=== PATIENT | male | born 1985 | race Two or more races ===

== ENCOUNTER 2020-08-01 23:07 | Emergency (ER) | payer MEDICAID ==
[~2020-08-01] VITALS: Ht 177.8 cm; Wt 62.1 kg
--- NOTE | 2020-08-01 23:22 | NUR ---
ED Nurse Note: Patient walked into ED c/o generalized weakness, report of being type 1 diabetic who has no access to glucometer, reports of being thirsty and weak,. ambulatory, a/ox4, 125hr, other vss, bs 168. pt stated he used meth today.
[2020-08-01] MEDS ORDERED: METOPROLOL SUCC50 MG ORAL (23:23)
[2020-08-01] MEDS ORDERED: NEURONTIN100 MG ORAL (23:23)
[2020-08-01] MEDS ORDERED: BUPROPION XL300 MG ORAL (23:23)
[2020-08-01] MEDS ORDERED: DEPAKOTE250 MG PO (23:23)
[2020-08-01 23:29] VITALS: BP 130/76
--- NOTE | 2020-08-01 23:34 | Emergency Room Report ---
History of Present Illness General Chief Complaint: Generalized Weakness Source: Patient Present Illness HPI Patient is a 35-year-old male past medical history of tachycardia says he is on metoprolol but has not taken it, drug use says he took crystal meth this morning and diabetes on NovoLog as well as Lantus but states he lost it and has not used his insulin for the past day. Who presents to the ER complaining of elevated blood glucose. Patient states that he feels generally weak. He states he has increased thirst and frequent urination. He denies any fever or chills. He denies any chest pain or shortness of breath. He denies any abdominal pain or diarrhea. He states that he has been admitted in the past for DKA. Allergies: Coded Allergies: CEFACLOR (Verified Allergy, Unknown, 08/01/20) TRAZODONE (Verified Allergy, Unknown, 08/01/20) COVID-19 Screening Contact w/high risk pt: No Experienced COVID-19 symptoms?: No COVID-19 Testing performed [employer]: Yes - 07/14/20 COVID-19 Screening: Negative COVID-19 COVID-19 Testing Source: [facility] Patient History Social History: Reports: drug use Reviewed Nursing Documentation: PMH: Agreed; PSxH: Agreed Nursing Documentation-PMH Past Medical History: No History, Except For Hx Diabetes: Yes - type 1 Review of Systems All Other Systems: negative except mentioned in HPI Physical Exam Vital Signs Date Time Temp Pulse Resp B/P (MAP) Pulse Ox O2 Delivery O2 Flow Rate FiO2 08/01/20 23:18 98.6 125 18 130/76 (94) 98 Room Air Sp02 EP Interpretation: reviewed, normal General Appearance: no apparent distress, alert, GCS 15, non-toxic Head: normocephalic, atraumatic Eyes: bilateral eye normal inspection, bilateral eye PERRL ENT: hearing grossly normal, normal pharynx, no angioedema, normal voice Neck: full range of motion, supple/symm/no masses Respiratory: chest non-tender, lungs clear, normal breath sounds, speaking full sentences Cardiovascular #1: tachycardia Gastrointestinal: non tender, soft, no guarding, no rebound Rectal: deferred Musculoskeletal: normal range of motion Neurologic: assistant broker III-XII nml as tested, oriented x3 Psychiatric: no suicidal/homicidal ideation Skin: no rash Lymphatic: no adenopathy Medical Decision Making Diagnostic Impression: Primary Impression: Methamphetamine abuse Additional Impressions: Hyperglycemia due to type 1 diabetes mellitus Episode of generalized weakness ER Course Patient presents complaining of weakness and feeling like he is hyperglycemic after losing his insulin for the past 24 hours. Patient admits to using methamphetamines this morning which is likely attributing to his tachycardia. Patient also states that he takes metoprolol for chronic tachycardia and has been taking it. He denies any chest pain or shortness of breath. Patient is afebrile and has normal white blood cell count. His lactate is mildly elevated 2.5 on known significance. Patient's chest x-ray demonstrates no acute cardiopulmonary pathology. Patient's urinalysis demonstrates no evidence for UTI. Patient's anion gap is normal. Patient's heart rate improved to 108 prior to arrival. Again I believe that his tachycardia is secondary to his methamphetamine use. After discussing risks and benefits of further diagnostics, treatment plans, as well as indications for and risks of admission, the patient is agreeable to being discharged home. I have explained that their evaluation and treatment in the emergency department today is an important step towards them achieving better health but that their evaluation today is not intended to replace further evaluation and treatment by a physician in their local clinic. I have explained that while the current findings suggest no immediate life threatening emergency they will require further evaluation and treatment by a physician of their choice in their area. They understand that it will be necessary for them to review the final reports of their ED visit with their clinic physician. We have reviewed indications for return to the Emerg ency Department. I have explained that additional time may need to pass and/or additional testing as an outpatient may be necessary before a definitive diagnosis can be made. They tell me they are willing to follow up as instructed within the timeframe I recommend. They appear to understand what we discussed. Additionally they understand that if they are unable to be seen by an outpatient physician they are welcome, and in fact should, return to the Emergency Department for a repeat evaluation. The patient is stable at time of discharge. Laboratory Tests Test 08/01/20 23:27 08/01/20 23:31 08/01/20 23:32 08/02/20 00:37 POC Whole Blood Glucose 168 MG/DL (74-106) H White Blood Count 9.2 K/UL (4.8-10.8) Red Blood Count 3.97 M/UL (4.70-6.10) L Hemoglobin 11.6 G/DL (14.2-18.0) L Hematocrit 34.5 % (42.0-52.0) L Mean Corpuscular Volume 87 FL (80-99) Mean Corpuscular Hemoglobin 29.3 PG (27.0-31.0) Mean Corpuscular Hemoglobin Concent 33.6 G/DL (32.0-36.0) Red Cell Distribution Width 15.5 % (11.6-14.8) H Platelet Count 322 K/UL (150-450) Mean Platelet Volume 7.4 FL (6.5-10.1) Neutrophils (%) (Auto) 83.1 % (45.0-75.0) H Lymphocytes (%) (Auto) 6.6 % (20.0-45.0) L Monocytes (%) (Auto) 9.5 % (1.0-10.0) Eosinophils (%) (Auto) 0.3 % (0.0-3.0) Basophils (%) (Auto) 0.4 % (0.0-2.0) Urine Color Yellow Urine Appearance Clear Urine pH 5 (4.5-8.0) Urine Specific [employer] 1.025 (1.005-1.035) Urine Protein 3+ (NEGATIVE) H Urine Glucose (UA) Negative (NEGATIVE) Urine Ketones Negative (NEGATIVE) Urine Blood 2+ (NEGATIVE) H Urine Nitrite Negative (NEGATIVE) Urine Bilirubin Negative (NEGATIVE) Urine Urobilinogen Normal MG/DL (0.0-1.0) Urine Leukocyte Esterase Negative (NEGATIVE) Urine RBC 2-4 /HPF (0 - 0) H Urine WBC 0 /HPF (0 - 0) Urine Squamous Epithelial Cells None /LPF (NONE/OCC) Urine Bacteria None /HPF (NONE) Sodium Level 135 MMOL/L (136-145) L Potassium Level 4.2 MMOL/L (3.5-5.1) Chloride Level 99 MMOL/L (98-107) Carbon Dioxide Level 30 MMOL/L (21-32) Anion Gap 6 mmol/L (5-15) Blood Urea Nitrogen 23 mg/dL (7-18) H Creatinine 1.2 MG/DL (0.55-1.30) Estimated Glomerular Filtration Rate > 60 mL/min (>60) Glucose Level 198 MG/DL (74-106) H Lactic Acid Level 2.50 mmol/L (0.4-2.0) H Pending Calcium Level 9.1 MG/DL (8.5-10.1) Magnesium Level 1.7 MG/DL (1.8-2.4) L Total Bilirubin 0.4 MG/DL (0.2-1.0) Aspartate Amino Transferase (AST) 88 U/L (15-37) H Alanine Aminotransferase (ALT) 153 U/L (12-78) H Alkaline Phosphatase 190 U/L (46-116) H Troponin I 0.004 ng/mL (0.000-0.056) Total Protein 7.7 G/DL (6.4-8.2) Albumin 2.8 G/DL (3.4-5.0) L Globulin 4.9 g/dL Albumin/Globulin Ratio 0.6 (1.0-2.7) L Urine Opiates Screen Negative (NEGATIVE) Urine Barbiturates Screen Negative (NEGATIVE) Phencyclidine (PCP) Screen Negative (NEGATIVE) Urine Amphetamines Screen Positive (NEGATIVE) H Urine Benzodiazepines Screen Negative (NEGATIVE) Urine Cocaine Screen Negative (NEGATIVE) Urine Marijuana (THC) Screen Negative (NEGATIVE) Acetone Level Negative (NEGATIVE) Venous Blood pH 7.391 Venous Blood Partial Pressure CO2 45.5 Venous Blood Partial Pressure O2 18.5 Venous Blood HCO3 27.0 Venous Blood Base Excess 1.7 Venous Blood Carboxyhemoglobin 1.9 % (0.5-1.5) H Methemoglobin 0.6 Microbiology Date/Time Source Procedure Growth Status 08/01/20 23:31 Nasopharynx SARS-CoV-2 RdRp Gene Assay - Final Complete EKG Diagnostic Results Troponin ordered: Yes When was troponin ordered?: Aug 01, 2020 EKG Time: 23:29 EP Interpretation: Anneliese Verduzco MD Rate: tachycardiac - 118 bpm Rhythm: other - Sinus tachycardia ST Segments: no acute changes ASA given to the pt in ED: No Rhythm Strip Diag. Results Rhythm Strip Time: 23:34 EP Interpretation: yes - Anneliese Verduzco MD Rate: 119 bpm Rhythm: no PVC's, no ectopy, other - sinus Tachycardia Chest X-Ray Diagnostic Results Chest X-Ray Diagnostic Results : Chest X-Ray Ordered: Yes # of Views/Limited/Complete: 1 View Indication: Other - tachycardia EP Interpretation: Yes Interpretation: no consolidation, no effusion, no pneumothorax, no acute cardiopulmonary disease Impression: No acute disease Electronically Signed by: Anneilese Verduzco MD Last Vital Signs Date Time Temp Pulse Resp B/P (MAP) Pulse Ox O2 Delivery O2 Flow Rate FiO2 08/01/20 23:18 98.6 125 18 130/76 (94) 98 Room Air Disposition: HOME, SELF-CARE Condition: Stable Additional Instructions: The patient was provided with discharge instructions, notified to follow-up with a primary care doctor and or specialist in the next 24-48 hours, and to return to the ED if they have worsening of their symptoms. Please note that this report is being documented using [employer] technology. This can lead to erroneous entry secondary to incorrect interpretation by the dictating instrument. Anneliees Verduzco M.D. Aug 01, 2020 23:33
[2020-08-01 23:50] LABS: APPEARANCE,URINE CLEAR; BILIRUBIN, URINE NEGATIVE (NEGATIVE); GLUCOSE, URINE (UA) NEGATIVE (NEGATIVE); KETONES,URINE NEGATIVE (NEGATIVE); LEUKOCYTE ESTERASE ,URINE NEGATIVE (NEGATIVE); NITRITE,URINE NEGATIVE (NEGATIVE); PH,URINE 5 (4.5-8.0); PROTEIN,URINE 3+ (NEGATIVE); UROBILINOGEN,URINE NORMAL MG/DL (0.0-1.0)
--- NOTE | 2020-08-01 23:52 | NUR ---
ED Nurse Note: xray at bedside
[2020-08-01 23:53] LABS: BASOPHILS % (AUTO) 0.4 % (0.0-2.0); EOSINOPHILS % (AUTO) 0.3 % (0.0-3.0); HEMATOCRIT 34.5 % (42.0-52.0); HEMOGLOBIN 11.6 G/DL (14.2-18.0); LYMPHOCYTES % (AUTO) 6.6 % (20.0-45.0); MEAN CORPUSCULAR VOLUME 87 FL (80-99); MONOCYTES % (AUTO) 9.5 % (1.0-10.0); NEUTROPHILS % (AUTO) 83.1 % (45.0-75.0); PLATELET COUNT 322 K/UL (150-450); RED BLOOD COUNT 3.97 M/UL (4.70-6.10); RED CELL DISTRIBUTION WIDTH 15.5 % (11.6-14.8); WHITE BLOOD COUNT 9.2 K/UL (4.8-10.8)
[2020-08-01 23:55] LABS: COLOR,URINE YELLOW
[2020-08-02] MEDS: LORazepam Inj 2mg/ml 1ml IV ONE
[2020-08-02 00:02] LABS: ANION GAP 6 mmol/L (5-15); BLOOD UREA NITROGEN 23 mg/dL (7-18); CALCIUM 9.1 MG/DL (8.5-10.1); CARBON DIOXIDE 30 MMOL/L (21-32); CHLORIDE 99 MMOL/L (98-107); CREATININE 1.2 MG/DL (0.55-1.30); POTASSIUM 4.2 MMOL/L (3.5-5.1); SODIUM 135 MMOL/L (136-145)
[2020-08-02 00:08] LABS: ALANINE AMINOTRANSFERASE 153 U/L (12-78); ALBUMIN 2.8 G/DL (3.4-5.0); ALBUMIN/GLOBULIN RATIO 0.6 (1.0-2.7); ALKALINE PHOSPHATASE 190 U/L (46-116); ASPARTATE AMINO TRANSFERASE 88 U/L (15-37); BILIRUBIN,TOTAL 0.4 MG/DL (0.2-1.0)
[2020-08-02 00:42] VITALS: BP 130/76
--- NOTE | 2020-08-02 00:43 | NUR ---
ED Nurse Note: Pt cleared by health care Provider for discharge. DC instructions/prescription was given and explained to pt and verbalized understanding of teachings. All medical deviecs such as ID band and iv removed. Pt is AAO x4, ambulatory and left with all personal belongings.
--- NOTE | 2020-08-02 11:48 | Diagnostic Imaging Report ---
Indication: Chest pain, tachypnea Technique: XRAY Chest 1v Comparison: None Findings: Limited evaluation as the apices are excluded from view. Within these limitations: No focal airspace consolidation. No pleural effusion or pneumothorax. Heart size within normal limits. Mediastinal contours are sharp. No acute osseous abnormality. Impression: Limited evaluation of the lung apices are excluded from view. Pathology in these regions not excluded. Within limitations of this exam: No radiographic evidence of acute cardiopulmonary disease.
--- NOTE | 2020-08-02 12:53 | Cardiology Report ---
APPROVED REPORT EKG Measurement Heart [id number] <Conclusion> Sinus tachycardia Otherwise normal ECG
== END 2020-08-02 00:49 | disposition home or self-care (01) ==
LOC: EMR 23:30
DX: F15.10 Other stimulant abuse, uncomplicated (principal); E10.65 Type 1 diabetes mellitus with hyperglycemia; R53.1 Weakness; Z88.8 Allergy status to other drugs, medicaments and biological substances; Z79.4 Long term (current) use of insulin; Z79.899 Other long term (current) drug therapy
CPT/HCPCS: 36415; 71045; 80053; 80307; 81003; 82009; 82803; 82962; 83605; 83735; 84484; 85025; 87040; 93005; 96361; 96374; U0002; Z7502; 99284